=== PATIENT | male | born 1965 | race Two or more races ===

== ENCOUNTER → 2016-08-13 | Outpatient (CLI) | payer BC ==
--- NOTE | 2016-08-13 14:40 | RAD ---
Left RIBS with chest, 3 views, 08/13/2016: History: Fall, pain There is a fracture of the lateral aspect of the left sixth rib with slight displacement at the fracture site. No other rib abnormality is seen. There is mild underlying linear atelectasis and/or scarring in the left base. There is no evidence of pneumothorax or significant pleural fluid. There is a surgical plate and screws related to an old, healed distal left clavicular fracture. IMPRESSION: Left sixth rib fracture.
== END | disposition home or self-care (01) ==
LOC: DXRADRC 13:40
PROVIDERS: ATTEND General Practice
DX: S22.32XD Fracture of one rib, left side, subsequent encounter for fracture with routine healing (principal); S42.032D Displaced fracture of lateral end of left clavicle, subsequent encounter for fracture with routine healing; X58.XXXD Exposure to other specified factors, subsequent encounter
CPT/HCPCS: 71101